=== PATIENT | female | born 2000 | race American Indian/Alaskan Native ===

== ENCOUNTER 2019-07-05 04:10 | Emergency (ER) | payer OTHER ==
[2019-07-05 04:26] VITALS: BP 91/54
--- NOTE | 2019-07-05 08:04 | XRay Report ---
LUMBAR SPINE 3 VIEWS INDICATION / CLINICAL INFORMATION: MAIN: fall with lower back pain on Sunday. COMPARISON: None available. FINDINGS: VERTEBRAE: No acute fracture. No significant malalignment. DISC SPACES / FACET JOINTS:No significant abnormality. PARASPINAL SOFT TISSUES:No significant abnormality. ADDITIONAL FINDINGS: None. Signer Name: Danyel Bates MD Signed: 07/05/2019 7:59 AM Workstation Name: [email or web address] [id number]
[2019-07-05 08:05] LABS: Bilirubin,Urine NEG (Negative); Blood,Urine LG (Negative); Color,Urine Yellow (Yellow); Mucus,Urine 1+ /HPF; Protein,Urine <15 mg/dL mg/dL (Negative); Urobilinogen,Urine < 2.0 mg/dL (<2.0)
--- NOTE | 2019-07-05 08:21 | Emergency Department Report ---
ED Back Pain/Injury HPI - General Chief Complaint: Back Pain/Injury Stated Complaint: LUCRECIA SEALS FELL ON BACK Time Seen by Provider: 07/05/19 07:10 Source: patient Mode of arrival: Ambulatory Limitations: No Limitations - History of Present Illness Initial Comments: This is a 18-year-old female here for back pain after injuring her lower back. She reported that lucrecia seals fell on her back yesterday. Denies any problem walking. She says her back feels sore and she has a bruise to her lower back. She took ibuprofen prior to coming to the emergency room. Patient denies any urinary symptoms. She is on her menses. Denies any abdominal pain. Denies any nausea vomiting. Denies any numbness or tingling to extremities. Denies any fever or chills MD Complaint: back pain, back injury Onset/Timin -: days(s) Similar Symptoms Previously: No Place: home Radiation: none Severity scale (0 -10): 8 Quality: dull, aching Consistency: constant Improves With: immobilization Worsens With: movement Context: while lifting (and clean in room) Associated Symptoms: denies: confusion, weakness, chest pain, numbness, difficulty walking, cough, difficulty urinating, diaphoresis, incontinence, fever/chills, constipation, headaches, abdominal pain, loss of appetite, malaise, nausea/vomiting, rash, seizure, shortness of breath, syncope Treatments Prior to Arrival: NSAIDS - Related Data Previous Rx's Medication Instructions Recorded Last Taken Type Famotidine [Pepcid] 20 mg PO BID #10 tablet 10/19/18 Unknown Rx predniSONE [Deltasone] 20 mg PO QDAY #5 tab 10/19/18 Unknown Rx Ibuprofen [Motrin] 800 mg PO Q8HR PRN #9 tablet 07/05/19 Unknown Rx Allergies Allergy/AdvReac Type Severity Reaction Status Date / Time shrimp Allergy Itching Verified 10/19/18 20:18 ED Review of Systems ROS: Stated complaint: LUCRECIA SEALS FELL ON BACK Other details as noted in HPI Constitutional: denies: chills, fever Respiratory: denies: cough, shortness of breath, SOB with exertion Cardiovascular: denies: chest pain, palpitations, edema Gastrointestinal: denies: abdominal pain, nausea, vomiting Genitourinary: denies: urgency, dysuria, frequency, hematuria, abnormal menses Musculoskeletal: back pain. 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 No distress. Alert and acting appropriately. This is a 18-year-old female well-nourished well-developed in no acute distress. LUNGS: Clear to auscultate bilaterally, no rhonchi wheezes or rales CV: S1, S2, regular rate and rhythm Abdomen: Soft, nontender to palpation in all quadrants. No guarding or rebound tenderness. No CVA tenderness Extremity: No clubbing, cyanosis or edema. +2 pulses in all extremities Neurological: No Focal deficit. BACK: Small bruising noted to upper lumbar area midline, she does have tenderness bilateral paraspinal area with palpation. Negative straight leg r aises, no midline tenderness Back/Abdomen: Yes Perilumbar Tenderness (paraspinal, bilateral), No Abdominal Tenderness, No Perithoracic Tenderness, No Sacroiliac Tenderness, No Flank Tenderness, No Straight Leg Raise Pain Neuro: Yes Normal Sensation, Yes Normal DTR's, Yes Normal Gait, No Motor Weakness ED Course Vital Signs 07/05/19 04:21 Temperature 97.9 F Pulse Rate 79 Respiratory 18 Rate Blood Pressure 91/54 [Right] O2 Sat by Pulse 98 Oximetry - Reevaluation(s) Reevaluation #1: 07/05/19 08:34 Patient had uneventful ED stay. She remained stable throughout ED course. Ed Back Pain Tests - Tests Tests: Normal UA (patient had large amount of blood but she is currently on her menses), Normal X Rays ED Medical Decision Making - Lab Data Lab Results 07/05/19 Range/Units 07:50 Urine Color Yellow (Yellow) Urine Turbidity Slightly-cloudy (Clear) Urine pH 5.0 (5.0-7.0) Ur Specific Crawford 1.027 (1.003-1.030) Urine Protein <15 mg/dl (Negative) mg/dL Urine Glucose (UA) Neg (Negative) mg/dL Urine Ketones Neg (Negative) mg/dL Urine Blood Lg (Negative) Urine Nitrite Neg (Negative) Urine Bilirubin Neg (Negative) Urine Urobilinogen < 2.0 (<2.0) mg/dL Ur Leukocyte Esterase Neg (Negative) Urine WBC (Auto) 1.0 (0.0-6.0) /HPF Urine RBC (Auto) 2.0 (0.0-6.0) /HPF U Epithel Cells (Auto) 12.0 (0-13.0) /HPF Urine Mucus 1+ /HPF - Radiology Data Radiology results: report reviewed X-ray lumbar spine dictated by radiologist and report reviewed by myself. No acute findings. [facility] [address] [place] [address] XRay Report Signed Patient: ASHISH DONNELLY MR#: [id number] : 2000 Acct:[id number] Age/Sex: 18 / F ADM Date: 07/05/19 Loc: ED Attending Dr: Ordering Physician: QUINN STEVENSON Date of Service: 07/05/19 Procedure(s): XR spine lumbosacral 2-3V Accession Number(s): [id number] cc: QUINN STEVENSON Fluoro Time In Minutes: LUMBAR SPINE 3 VIEWS INDICATION / CLINICAL INFORMATION: MAIN: fall with lower back pain on Sunday. COMPARISON: None available. FINDINGS: VERTEBRAE: No acute fracture. No significant malalignment. DISC SPACES / FACET JOINTS:No significant abnormality. PARASPINAL SOFT TISSUES:No significant abnormality. ADDITIONAL FINDINGS: None. Signer Name: Danyel Bates MD Signed: 07/05/2019 7:59 AM Workstation Name: [id number] Transcribed By: DT Dictated By: Johnny Bates MD Electronically Authenticated By: Johnny Bates MD Signed Date/Time: 07/05/19 075 DD/ 8 TD/TT: - Medical Decision Making This is a 18-year-old female here reported that she was having lower back pain from injury yesterday. Physical findings to include neurological exam is normal. Except she has small bruising to proximal lumbar spine area. She has tenderness to her lumbar paraspinal area. X-ray of lumbar spine shows no acute findings and this was dictated by radiologist and reviewed by myself. Urinalysis negative for infection. Large amount of blood was seen in urine but patient is on her menses. I discuss x-ray and urine report patient and she voiced understanding and she is to follow-up with her primary care physician in 2-3 days or return to the emergency room if symptoms worsens. She agrees and voices understanding. Patient discharged home with prescription for Motrin - Differential Diagnosis fracture vs subluxation vs contusion vs UTI ,simple back pain Critical care attestation.: If time is entered above; I have spent that time in minutes in the direct care of this critically ill patient, excluding procedure time. ED Disposition Clinical Impression: Back pain due to injury Disposition: DC-01 TO HOME OR SELFCARE Is pt being admited?: No Does the pt Need Aspirin: No Condition: Stable Instructions: Back Pain (ED) Additional Instructions: Please follow-up E primary care in 2-3 days If condition worsens, return to the emergency room otherwise rest for 2-3 days and avoid heavy lifting or any strenuous activity Take Motrin as prescribed and take this medication with food as it does cause irritation to stomach lining Prescriptions: Ibuprofen [Motrin] 800 mg PO Q8HR PRN #9 tablet PRN Reason: moderate to severe pain Referrals: EVERARDO TOVAR MD [Primary Care Provider] - 2-3 Days Forms: Work/School Release Form(ED)
== END 2019-07-05 08:56 | disposition home or self-care (01) ==
LOC: ED 04:10
DX: S39.92XA Unspecified injury of lower back, initial encounter (principal); Z91.013 Allergy to seafood; W19.XXXA Unspecified fall, initial encounter; Y93.89 Activity, other specified; Y92.009 Unspecified place in unspecified non-institutional (private) residence as the place of occurrence of the external cause; Y99.8 Other external cause status
CPT/HCPCS: 72100; 81001

== ENCOUNTER 2019-11-14 16:46 | Emergency (ER) | payer MEDICAID, OTHER ==
[2019-11-14 16:51] VITALS: BP 109/73
--- NOTE | 2019-11-14 17:36 | Emergency Department Report ---
Chief Complaint: Nausea/Vomiting/Diarrhea Stated Complaint: NAUSEA/PREG Time Seen by Provider: 11/14/19 17:18 - HPI History of Present Illness: 19-year-old -[place] female who is in no acute distress nontoxic in appearance presents to the emergency room complaining of nausea and vomiting and states that she is 8 weeks . Patient has not vomited today but twice yesterday. Her last menstrual period was 09/01/2019. Patient is 1 para 0. Patient reports she is able to eat and drink but not water. Patient denies any vaginal bleeding vaginal discharge or abdominal or pelvic pain. Patient reports that she does have an appointment at [facility] on November 25 for her . Patient reports that she has had one ultrasound done on 10/21/2019 at [facility]. - Exam Vital Signs: Vital Signs 11/14/19 16:50 Temperature 97.7 F Pulse Rate 107 H Respiratory 20 Rate Blood Pressure 109/73 O2 Sat by Pulse 100 Oximetry Physical Exam: Gen: alert oriented NAD nontoxic in appearance Cardic: regular rate and rhythm no murmurs appreciated Resp: Clear to auscultation bilateral no wheezing no rales or rhonchi. Abdomen: Soft nontender nondistended normal bowel sounds. Ambulatory without difficulties MSE screening note: Focused history and physical exam performed. Due to findings the following was ordered: 19-year-old -[place] female who is in no acute distress nontoxic in appearance presents to the emergency room complaining of nausea and vomiting and states that she is 8 weeks . Patient has not vomited today but twice yesterday. Her last menstrual period was 09/01/2019. Patient is 1 para 0. Patient reports she is able to eat and drink but not water. Patient denies any vaginal bleeding vaginal discharge or abdominal or pelvic pain. Patient reports that she does have an appointment at [facility] on November 25 for her . Patient reports that she has had one ultrasound done on 10/21/2019 at [facility]. Recommend patient to take [id number] Unisom and B6 for nausea and vomiting. Patient is to keep her appointment for November 25 if symptoms worsen to give them a call and make an appointment to come in earlier. ED Disposition for MSE Clinical Impression: Nausea and vomiting during prior to 22 weeks gestation Disposition: Z- MED SCREENING EXAM-LEFT Is pt being admited?: No Does the pt Need Aspirin: No Condition: Stable Additional Instructions: Recommend to take [id number] Unisom once a day as needed for nausea and vomiting and take B6 twice a day for nausea and vomiting. Keep your appointment for November 25 at [facility]. Follow-up sooner if symptoms persist or gets worse. Try to eat a bland diet stay away from spicy greasy foods foods that are heavy and garlic and onions. Referrals: [facility] [Outside] - 3-5 Days
== END 2019-11-14 17:45 | disposition left against medical advice (07) ==
LOC: ED 16:46
DX: O21.8 Other vomiting complicating pregnancy (principal); Z3A.08 8 weeks gestation of pregnancy; Z91.013 Allergy to seafood
CPT/HCPCS: 99282